=== PATIENT | male | born 1950 ===

== ENCOUNTER 2019-01-02 16:26 | Emergency (ER) | payer MEDICARE, MEDICAID ==
[~2019-01-02] VITALS: Ht 185.4 cm; Wt 71.8 kg
[2019-01-02 16:29] VITALS: BP 144/87; Ht 185.4 cm; Wt 71.8 kg
[2019-01-02] MEDS ORDERED: B&O SUPP1 SUPP.REC (16:31)
[2019-01-02] MEDS ORDERED: HUMALOG 30100 UNITS/ SC (16:32)
[2019-01-02] MEDS ORDERED: [UNRECOGNIZED DRUG - OTHER] (16:32)
[2019-01-02] MEDS ORDERED: GLYBURIDE5 M1 (16:32)
[2019-01-02] MEDS ORDERED: OXYCONTIN10 MG PO (16:32)
== END 2019-01-02 17:57 | disposition left against medical advice (07) ==
LOC: D.ER 16:26
DX: R06.6 Hiccough (principal)